=== PATIENT | male | born 1990 | race Caucasian/White ===

== ENCOUNTER 2017-02-08 07:51 | Emergency (ER) | payer OTHER ==
[~2017-02-08] VITALS: Ht 170.2 cm; Wt 63.5 kg
[2017-02-08 07:58] VITALS: BP 120/79
--- NOTE | 2017-02-08 08:03 | NUR ---
PT AMBULATED TO BED 2 AT THIS TIME.
--- NOTE | 2017-02-08 08:10 | NUR ---
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 ER MD MADE AWARE OF PT STATUS.
[2017-02-08] MEDS ORDERED: BACITRACIN OINT 500 UNITS/GM PKT TP ONE (09:00)
[2017-02-08] MEDS ORDERED: predniSONE 20 MG TAB PO ONE (09:00)
[2017-02-08 10:50] VITALS: BP 120/79
--- NOTE | 2017-02-08 10:51 | NUR ---
Patient discharged with v/s stable. Written and verbal after care instructions given and explained. Patient verbalized understanding. Ambulatory with steady gait. All questions addressed prior to discharge. Advised to follow up with PMD.
== END 2017-02-08 10:51 | disposition home or self-care (01) ==
LOC: MED 07:51
DX: L25.3 Unspecified contact dermatitis due to other chemical products (principal); L20.9 Atopic dermatitis, unspecified; L29.9 Pruritus, unspecified
CPT/HCPCS: 99282; J7512